=== PATIENT | male | born 1970 | race Caucasian/White ===

== ENCOUNTER 2016-10-07 04:44 | Inpatient (IN) ==
[2016-10-07] MEDS ORDERED: DILAUDID IV ONE ×4 (04:56→05:21)
[2016-10-07] MEDS ORDERED: ZOFRAN IV ONE (04:56)
[2016-10-07] MEDS ORDERED: DILAUDID ONE ×2 (05:02→05:13)
--- NOTE | 2016-10-07 05:08 | PROVIDER DOCUMENTATION ---
HPI-Abdominal Pain/GI Problem - General Chief Complaint: Nausea/Vomiting Stated Complaint: ABD PAIN, VOMITING Time Seen by Provider: 10/07/16 04:56 Source: patient, family (spouse) Allergies/Adverse Reactions: Patient Allergies Allergy/AdvReac Type Severity Reaction Status Date / Time No Known Allergies Allergy Verified 10/07/16 05:49 Home Medications: Home Medication List Medication Instructions Recorded Confirmed Last Taken Type NK [No Home Medications] 10/07/16 10/07/16 Unknown History - History of Present Illness-ABD Nature of Presenting Problems: pt states that he was awakened by epigastric pain that radiates straight through to his back over time it became much worse and is now severe and constant. He did vomit [employer] and still feels nauseous. No shoulder or chest pain. It does not hurt to breath. He does not take any medicines, he does not smoke or drink Review of Systems - Adult - REVIEW OF SYSTEMS - ADULT Constitutional: denies: chills, fever Eyes: denies: discharge Ears, Nose, Mouth & Throat: denies: ear pain, sinus problem, throat pain Cardiovascular: denies: chest pain Respiratory: denies: cough, pleurisy, shortness of breath Gastrointestinal: reports: see HPI. denies: constipation, diarrhea Genitourinary: denies: flank pain Musculoskeletal: reports: back pain (mid back pain) Integumentary: denies: rash Neurological: denies: headache/migraines, numbness, paresthesia Psychiatric: reports: no symptoms reported Endocrine: reports: no symptoms reported Hematologic/Lymphatic: reports: no symptoms reported Allergic/Immunologic: reports: no symptoms reported All Other Systems: Reviewed and Negative Past History - Adult - PAST MEDICAL HISTORY-ADULT Review of Records: reports: Old Records Reviewed, Nursing Assessment Review, Medications Reviewed, Social history reviewed & non-contributory. Cardiovascular: reports: HTN - PRIOR SURGERIES/PROCEDURES Surgical/Procedure History: reports: other (bilateral knee) - IMMUNIZATION STATUS Childhood Immunizations: See Nurse Assessment Flu Vaccine: See Nurse Assessment - SOCIAL HISTORY Smoking: non-smoker Substance Use: denies Living Situation: family Physical Exam-General - PHYSICAL EXAM-ADULT Initial Vital Signs Reviewed: Yes - CONSTITUTIONAL General Appearance: severe distress (from pain) - EYES Eyes: pink conjunctivae. negative: scleral icterus - HEAD, EARS, NOSE, MOUTH & THROAT HENMT: normocephalic/atraumatic - NECK Neck: non-tender, full range of motion, supple, normal inspection - RESPIRATORY Respiratory: chest non-tender, lungs clear, normal breath sounds, no pleuratic chest pain, no respiratory distress, no accessory muscle use - CARDIOVASCULAR Cardiovascular: regular rate, rhythm, no edema, no murmur - GASTROINTESTINAL (ABDOMEN) Abdominal Exam: normal bowel sounds, soft, no organomegaly, no pulsatile mass, guarding, tenderness (severe epigastric). negative: non tender, hernia, mass, hepatomegaly, spleenomegaly, McBurney's point tenderness, Coto's sign - MUSCULOSKELETAL Back Exam: normal inspection, no CVA tenderness, no vertebral tenderness Extremity: no pedal edema, no calf tenderness - SKIN Integumentary: other (ashen iglesias with diaphoresis) - NEUROLOGIC Neurologic: grossly normal, no motor/sensory deficits - PSYCHIATRIC Psych/Mental Status: normal thought content, normal thought process, oriented x 3, other (distressed by pain) Progress - PLAN OF CARE/RESULTS Progress/Plan/Lab Results: Vital Signs - 8 hr 10/07/16 04:50 Temperature 97.9 F Pulse Rate 54 L Respiratory Rate 20 Blood Pressure 156/80 O2 Sat by Pulse Oximetry 100 Orders Category Date Time Status CT ABD/PELVIS W/ IV CONT ONLY [CT] Stat Exams 10/07/16 04:59 Ordered CBC WITH ELECTRONIC DIFF [HEME] Stat Lab 10/07/16 05:01 Ordered CMP [COMPREHENSIVE METABOLIC PANEL] [CHEM] Stat Lab 10/07/16 05:01 Ordered LIPASE [CHEM] Stat Lab 10/07/16 05:01 Ordered TROPONIN T Stat Lab 10/07/16 05:01 Ordered Hydromorphone [Dilaudid] Med 10/07/16 04:56 Discontinued 1 mg IV NOW ONE Hydromorphone [Dilaudid] Med 10/07/16 05:00 Discontinued 2 mg IV NOW ONE Ondansetron [Zofran] Med 10/07/16 04:56 Discontinued 4 mg IV NOW ONE EKG [EKG] Stat Ther 10/07/16 04:57 Ordered Result Diagrams: 10/07/16 05:00 10/07/16 05:00 - REASSESSMENT Reassessment #1 Time Reassessed: 05:41 (finally after dilaudid 6mg, toradol 30mg, ofirmev 1000mg , and ativan 2mg IV pt can now rest and tolerate the pain!) Status: improving - EKG 1 Time of EKG reading by physician:: 05:08 EKG Interpretation (*Must complete 3 of following elements*): Abnormal Rate: 52 Rhythm: sinus manfred [place]: normal QRS: normal NE Interval: shortened ST Wave: normal Prior EKG Comparison: unchanged from prior - CT/MRI 1 CT Study: Abdomen Impression: Abnormal (several gallstones, CBD at 7mm) Departure - Departure Date of Disposition Decision: 10/07/16 Time of Disposition Decision: 05:55 DIAGNOSIS: Cholecystitis Disposition: HOME 01 Certified Medical Emergency: Emergent Condition: Fair Referrals and Follow-Ups: None,PCP [Primary Care Provider] - Discharge Education: Smoking, You Can Quit, [id number], Smoking Cessation, Tips for Success - Critical Care Note This patient required my direct & personal management of CC.: No Attestation - Physician/ ALTAGRACIA Attestation Patient care was provided by Advanced Practice Provider:: No The physician spent face to face time with patient:: Yes Advanced Practice Provider documentation review:: Supervising physician onsite and consulted in the evaluation and care of this patient. The physician did have a face to face encounter with the patient.
[2016-10-07] MEDS ORDERED: OFIRMEV 1000 MG/ISOTONIC SOLN 1,000 MG/100 ML BOTTLE IV ONE (05:21)
[2016-10-07] MEDS ORDERED: TORADOL IV ONE (05:21)
[2016-10-07] MEDS ORDERED: ATIVAN IV ONE ×2 (05:21→05:30)
[2016-10-07 05:23] LABS: MANUAL DIFF NEEDED? NO
[2016-10-07 05:24] LABS: BASO% 0.3 % (0.0-0.8); EOS# 0.72 X1000 (0.0-0.7); EOS% 3.9 % (0.0-10.0); HEMATOCRIT 46.4 % (42.0-52.0); HEMOGLOBIN 15.4 g/dL (14.0-18.0); IMM GRAN# 0.08 X1000 (0.0-0.04); IMM GRAN% 0.4 % (0.0-0.5); LYMPH# 2.47 X1000 (1.2-3.4); LYMPH% 13.4 % (20.5-51.1); MCH 30.7 PG (27-31); MCHC 33.2 g/dL (33-37); MCV 92.4 FL (81-99); MONO# 1.29 X1000 (0.11-0.59); MPV 10.1 FL (7.4-10.4); PLT 352 X1000 (130-400); RBC 5.02 XMIL (4.7-6.1)
[2016-10-07 05:43] LABS: AGAP 11; ALBUMIN 4.4 g/dL (3.5-5.0); ALKALINE PHOSPHATASE 91 U/L (32-122); BUN 12 mg/dL (8-22); CALCIUM 9.2 mg/dL (8.8-10.2); CHLORIDE 100 mmol/L (98-107); COSMO 284; GOT 47 U/L (10-34); GPT 49 U/L (10-44); LIPASE 47 U/L (13-60); SODIUM 141 mmol/L (136-145); TCO2 30 mmol/L (25-35); TOTAL BILIRUBIN 0.19 mg/dL (0.20-1.00); TOTAL PROTEIN 7.7 g/dL (6.3-8.3)
--- NOTE | 2016-10-07 05:44 | EKG Report ---
Test Performed on : 10/07/2016 04:50:20 AM Test Reason : CP Blood Pressure : / mmHG Vent. Rate : 052 BPM Atrial Rate : 052 BPM P-R Int : 098 ms QRS Dur : 086 ms QT Int : 422 ms P-R-T Axes : 019 053 063 degrees QTc Int : 392 ms Sinus bradycardia. with short TX Otherwise normal ECG When compared with ECG of 08-JUL-2015 14:16, No significant change was found Unconfirmed Result
[2016-10-07] MEDS ORDERED: ZOSYN 3.375 GM in NS 50 ML IV ONE (05:53)
[2016-10-07] MEDS ORDERED: NS 1,000 ML IV ONE (05:53)
--- NOTE | 2016-10-07 07:31 | Diag Imaging Result Doc PS360 ---
EXAM: CT ABD/PELVIS W/ IV CONT ONLY HISTORY: epigastric/mid back pain TECHNIQUE: CT of the abdomen and pelvis with intravenous contrast with reduced dose (clarity.) COMMENT: The visualized portion of the chest is unremarkable. There are numerous calcified gallstones in the gallbladder. The gallbladder slightly distended. Many of the stones exceed a centimeter in diameter. The spleen adrenal glands and liver are unremarkable. The pancreas is within normal limits. The common bile duct is slightly distended at over 9 mm. There are no definite intraductal stones. The kidneys are without evidence of hydronephrosis or mass. There is no evidence of bowel obstruction. There are subcentimeter periaortic nodes on the left. Pelvis: There is no evidence of appendicitis. There is a fairly large amount of stool in the rectosigmoid colon. There is no evidence of free fluid. There is no evidence of significant adenopathy. There is degenerative disc disease with possible disc herniation at L5-S1. IMPRESSION: Cholelithiasis. Mild constipation. Dilatation of the common bile duct of uncertain etiology. Electronically signed by Heath Pettit 10/07/2016 7:29 AM
[2016-10-07] MEDS ORDERED: ZOFRAN IV PRN (10:46)
[2016-10-07] MEDS: ZOSYN 3.375 GM in NS 50 ML IV SCH ×2 (12:27→19:26)
[2016-10-07] MEDS: NICODERM PATCH TD SCH (12:27)
[2016-10-07] MEDS: LR 1,000 ML IV SCH ×2 (12:28→22:15)
[2016-10-07] MEDS: DILAUDID IV PRN ×2 (12:28→22:15)
[2016-10-07] MEDS ORDERED: FENTANYL ONE (15:45)
[2016-10-07] MEDS ORDERED: DIPRIVAN 1% ONE (15:45)
[2016-10-07] MEDS ORDERED: XYLOCAINE-MPF 2% ONE (15:47)
[2016-10-07] MEDS ORDERED: XYLOCAINE 1%/EPI 1:100,000 ONE (16:27)
[2016-10-07] MEDS ORDERED: MARCAINE 0.25% PF ONE (16:27)
[2016-10-07] MEDS ORDERED: SODIUM CHLORIDE 0.9% ONE (16:28)
[2016-10-07] MEDS ORDERED: LR 1,000 ML ONE (16:28)
[2016-10-07] MEDS ORDERED: DECADRON ONE (16:54)
[2016-10-07] MEDS ORDERED: ZOFRAN ONE (16:54)
[2016-10-07] MEDS ORDERED: TORADOL ONE (16:54)
[2016-10-07] MEDS ORDERED: OFIRMEV 1000 MG/ISOTONIC SOLN 1,000 MG/100 ML BOTTLE ONE (16:57)
[2016-10-07] MEDS ORDERED: ROBINUL ONE ×2 (17:03→17:27)
--- NOTE | 2016-10-07 17:19 | HISTORY AND PHYSICAL ---
DATE OF ADMISSION: 10/07/2016 HISTORY OF PRESENT ILLNESS: This is a 46-year-old male who presents to the emergency department with severe right upper quadrant abdominal pain. He says over the last year he has had some colicky epigastric and right upper quadrant pain that has been intermittent and has been self- limited. This was a similar episode but became much more severe and persisted with nausea, vomiting, and some subjective fevers. CT scan shows large gallstones throughout his gallbladder. He has leukocytosis. PAST MEDICAL HISTORY: Negative. PAST SURGICAL HISTORY: He has had a finger amputation and knee operation. SOCIAL HISTORY: He smokes about a pack a day. Occasional alcohol. Works in construction. FAMILY HISTORY: He does have some cancer in his family, breast in his sister. REVIEW OF SYSTEMS: Ten point negative except for what is mentioned in HPI. PHYSICAL EXAMINATION: Vital signs: Temperature is 99.0 degrees, pulse 76, blood pressure 113/75, oxygen saturation 96% on room air. This is a 181 pounds, 6 feet tall white male. General: He is alert, in no acute distress. HEENT: No scleral icterus or cervical masses. Cardiovascular: Normal rate. Regular rhythm. Pulmonary: No increased work of breathing. Abdomen: Soft. He is tender in the right upper quadrant but nondistended. There is no peritonitis. Integument: Warm and dry without jaundice. 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 Lymphatic: There is no cervical or axillary lymphadenopathy. Musculoskeletal: Normal range of motion and strength throughout. Peripheral vascular: Well perfused with no lower extremity edema. Psychiatric: Appropriate affect. Neurologic: No gross motor deficits. LABS: White count 18, hematocrit 46. Creatinine is 1.1, bilirubin 0.19, AST 47, ALT 49, alkaline phosphatase 91, lipase 47, albumin is 4.4. CT scan shows cholelithiasis with some dilation of the common bile duct of unclear etiology. No evidence of cholecystitis. ASSESSMENT AND PLAN: This is a 46-year-old white male with symptomatic cholelithiasis that has progressed to cholecystitis. Long discussion with the patient regarding risks, benefits, and alternatives. Risks including bleeding, infection, bile leak, injury to surrounding structures, for example the common bile duct, and the possible outcomes of those and the possibly that we leave a drain. We did talk about benefits and alternatives. He consents to the procedure. He is NPO. I have given him Zosyn for possible cholecystitis. LFTs with mild elevation of transaminases. As such, we will do a cholangiogram if technically feasible and will follow him along while he is inpatient. cc: Rj Ponce MD
[2016-10-07] MEDS ORDERED: NEOSTIGMINE ONE (17:27)
[2016-10-07] MEDS ORDERED: GLUCAGON ONE (17:28)
--- NOTE | 2016-10-07 17:57 | Diag Imaging Result Doc PS360 ---
EXAM: OPERATIVE CHOLANGIOGRAM HISTORY: GALLBLADDER DISEASE TECHNIQUE: Intraoperative cholangiogram two views COMMENT: There is a filling defect and obstruction of the distal common bile duct which is likely due to a stone. IMPRESSION: Obstruction of the distal common bile duct due to impacted stone. Electronically signed by Heath Pettit 10/07/2016 5:55 PM
[2016-10-07] MEDS: MORPHINE ONE ×3 (18:31→18:46)
[2016-10-07] MEDS ORDERED: SODIUM CHLORIDE 0.9% 10 ML ONE (22:18)
[2016-10-07] MEDS ORDERED: PROTONIX ONE (22:19)
[2016-10-07] MEDS: PROTONIX IV SCH (22:20)
[2016-10-07] MEDS: SODIUM CHLORIDE 0.9% INJ SCH (22:20)
[2016-10-07] MEDS: PERIDEX MT SCH (23:21)
[2016-10-07] MEDS: NORCO-7.5 PO PRN (23:49)
[2016-10-08] MEDS: ZOSYN 3.375 GM in NS 50 ML IV SCH ×4 (01:45→20:54)
[2016-10-08] MEDS: DILAUDID IV PRN ×6 (05:09→22:32)
[2016-10-08] MEDS: LR 1,000 ML IV SCH ×5 (07:34→23:19)
[2016-10-08] MEDS: NICODERM PATCH TD SCH (08:09)
[2016-10-08] MEDS: PERIDEX MT SCH ×2 (08:10→20:54)
[2016-10-08 08:37] LABS: MANUAL DIFF NEEDED? NO
[2016-10-08 08:39] LABS: BASO% 0.1 % (0.0-0.8); EOS# 0.01 X1000 (0.0-0.7); EOS% 0.1 % (0.0-10.0); HEMATOCRIT 40.5 % (42.0-52.0); HEMOGLOBIN 13.5 g/dL (14.0-18.0); IMM GRAN# 0.02 X1000 (0.0-0.04); IMM GRAN% 0.2 % (0.0-0.5); LYMPH# 1.26 X1000 (1.2-3.4); LYMPH% 9.6 % (20.5-51.1); MCH 30.8 PG (27-31); MCHC 33.3 g/dL (33-37); MCV 92.5 FL (81-99); MONO# 0.86 X1000 (0.11-0.59); MONO% 6.5 % (1.7-9.3); MPV 9.8 FL (7.4-10.4); NEUT% 83.5 % (42.2-75.2); PLT 264 X1000 (130-400); RBC 4.38 XMIL (4.7-6.1)
[2016-10-08 08:57] LABS: AGAP 9; ALBUMIN 3.6 g/dL (3.5-5.0); ALKALINE PHOSPHATASE 155 U/L (32-122); BUN 9 mg/dL (8-22); CALCIUM 8.1 mg/dL (8.8-10.2); CHLORIDE 102 mmol/L (98-107); COSMO 277; GOT 96 U/L (10-34); GPT 79 U/L (10-44); LIPASE 19 U/L (13-60); POTASSIUM 4.2 mmol/L (3.5-5.1); SODIUM 139 mmol/L (136-145); TCO2 28 mmol/L (25-35); TOTAL BILIRUBIN 0.48 mg/dL (0.20-1.00); TOTAL PROTEIN 6.1 g/dL (6.3-8.3)
--- NOTE | 2016-10-08 11:00 | OPERATIVE NOTE ---
PROCEDURE DATE: 10/07/2016 PREOPERATIVE DIAGNOSES: 1. Cholelithiasis. 2. Cholecystitis. POSTOPERATIVE DIAGNOSIS: Choledocholithiasis with cholecystitis. ANESTHESIA: General. ESTIMATED BLOOD LOSS: 20 mL. SPECIMENS: Gallbladder. PROCEDURE PERFORMED: Laparoscopic cholecystectomy with intraoperative cholangiogram. INDICATIONS: A 46-year-old white male who presents with 1 year history of colicky intermittent right upper quadrant abdominal pain. He had a more acute and severe episode that brought him to the emergency department. CT scan showed gallstones. LFTs were mildly abnormal with elevation transaminases. OPERATIVE FINDINGS: 1. There is a densely inflamed, erythematous and edematous gallbladder with omental and duodenal adhesions. Several large stones within the lumen. 2. Interpretation intraoperative cholangiogram. There is rapid flow contrast into a nondilated moderate length cystic duct into a dilated common bile duct with an abrupt cut off and apparent distal common bile duct stone impacted. There was reflux into the common hepatic which again was dilated and into the bilateral second and third degree biliary radicals, which were dilated. We attempted to give glucagon, but there was ultimately no passage of contrast into the duodenum consistent with a retained distal common bile duct stone. Operative note, risks, benefits, alternatives discussed with the patient. He consented to the procedure. He was seen preoperatively and surgery to be performed was confirmed. DESCRIPTION OF PROCEDURE IN DETAIL: He was taken to the operating room, placed supine position. General anesthesia induced without complication. All bony prominence were padded. Placed in neutral position. Scheduled antibiotics were confirmed, hair was removed with clippers. His abdomen was prepped with chlorhexidine solution and draped in usual fashion. After time-out was performed, periumbilical block was made with local anesthetic. A curvilinear infraumbilical incision was made and carried down to the level of the fascia. The fascia was elevated with a Dianna clamp, an incision along the midline was made, and abdomen was entered in an open controlled fashion. A 12 mm Franny trocar was placed. The abdomen was insufflated 15 mmHg. He tolerated this well. He was then placed in reverse Trendelenburg, left side down. We placed 3 trocars; one at the epigastrium, one in the midclavicular line off the costal margin, and one more laterally after infiltration of the peritoneum with local anesthetic. He tolerated this well. We then used a locking grasper, grasped the gallbladder, retracted it cephalad. It is quite distended. As such, we used the suction decompression needle to decompress it. It would partially decompress, but it was impacted with stones. As such, we retracted the gallbladder cephalad and, using a combination of blunt and electrocautery dissection, we took down all the adhesions up to the gallbladder. This was quite hemorrhagic, took quite some time, but we were able do this successfully and safely. Retracting down patient's right on the infundibulum, we identified the infundibulocystic junction and then dissected the lower third of the gallbladder off exposing this triangle with the liver visualized through this. There was a small cystic artery that coursed through this that we doubly clipped and divided. After confirming the anatomy and a critical view again, we were able to dissect a normal caliber cystic duct. We placed a clip on the gallbladder side of the cystic duct, made a ductotomy, performed cholangiogram with above findings. After we confirmed that there was a stone in the distal common bile duct, we did administer some glucagon and, despite flushing again, the stone would not dislodge. As such, we triply clipped the cystic duct and divided it and removed the gallbladder from the gallbladder fossa with electrocautery. We placed the gallbladder in EndoCatch bag with care not to rupture it and this was done successfully. We then irrigated the abdomen until clear and again inspected our cystic duct stump. There was good closure here; there is no bleeding. We placed a Jewel drain in the gallbladder fossa given the distal obstruction and inflamed nature, brought this out through a lateral port site and secured with a nylon suture. We then removed the other trocars under direct visualization. They were hemostatic. We desufflated the abdomen, brought the gallbladder out through the umbilical incision. We closed the fascia with interrupted 0 Vicryl sutures. Skin was closed with 4-0 subcuticular sutures and Dermabond was applied for dressing. He tolerated the procedure well. Counts were correct x2. I spoke with the family. We transferred him to recovery and to the floor tonight. We will continue his antibiotics for cholangitis prophylaxis, and I have consulted Dr. Teixeira of GI medicine for ERCP and stone extraction. I discussed this finding with the family and they understand that he will need another procedure. We will continue to follow him while inpatient. cc: Rj Ponce MD [facility]
[2016-10-08] MEDS ORDERED: DIPRIVAN 1% ONE ×2 (12:58→13:06)
[2016-10-08] MEDS ORDERED: VERSED ONE (12:59)
--- NOTE | 2016-10-08 13:50 | PROGRESS NOTE ---
DATE: 10/08/2016 SUBJECTIVE: Still having some pain but otherwise was appropriate in the postop setting. No fevers overnight. Pulse 52, blood pressure 125/80, oxygen saturation 97% on room air.General: He is alert. I do not see any jaundice or scleral icterus. Abdomen: Is soft, appropriately tender. SRUTHI drain serosanguineous. LABS: White count 13, hematocrit 40, creatinine is 1.0, bilirubin is normal at 0.48. AST and ALT are up slightly at 96 and 79. Alkaline phosphatase 155. Lipase normal at 19. ASSESSMENT/PLAN: This is a 46-year-old male admitted with cholecystitis and found to have choledocholithiasis. I have talked to Dr. Teixeira. He and Dr. Ngo are planning a ERCP today. We will continue antibiotics for cholangitis prophylaxis and we will advance his diet as he tolerates afterwards. Keep the drain for now given his distal obstruction and will continue to follow him along. cc: Rj Ponce MD
--- NOTE | 2016-10-08 14:04 | Diag Imaging Result Doc PS360 ---
ERCP-BILIARY AND PANCREATIC - 10/08/2016 INDICATION: CBD stone TECHNIQUE: The exam was performed by the patient's endoscopist. Three images were submitted. COMPARISON: CT from 10/07/2016 FINDINGS: There is dilation of the common bile duct presumably from a stone impacted distally. This was successfully crossed with a wire. A common bile duct stent was left in place. IMPRESSION: No complication. Electronically signed by Moose Ontiveros 10/08/2016 2:02 PM
[2016-10-08] MEDS: NORCO-7.5 PO PRN ×2 (14:16→20:55)
[2016-10-08] MEDS: PROTONIX IV SCH (20:54)
[2016-10-08] MEDS: SODIUM CHLORIDE 0.9% INJ SCH (20:54)
[2016-10-09] MEDS: DILAUDID IV PRN ×11 (00:22→23:03)
[2016-10-09] MEDS: NORCO-7.5 PO PRN ×5 (03:06→21:43)
[2016-10-09] MEDS: ZOSYN 3.375 GM in NS 50 ML IV SCH ×4 (04:00→20:40)
[2016-10-09] MEDS: LR 1,000 ML IV SCH ×6 (07:19→23:03)
[2016-10-09] MEDS: NICODERM PATCH TD SCH (08:57)
[2016-10-09] MEDS: PERIDEX MT SCH ×2 (08:59→20:41)
[2016-10-09 09:36] LABS: AGAP 10; ALBUMIN 3.4 g/dL (3.5-5.0); ALKALINE PHOSPHATASE 117 U/L (32-122); BUN 6 mg/dL (8-22); CALCIUM 8.4 mg/dL (8.8-10.2); CHLORIDE 103 mmol/L (98-107); COSMO 277; GOT 52 U/L (10-34); GPT 60 U/L (10-44); POTASSIUM 3.6 mmol/L (3.5-5.1); SODIUM 140 mmol/L (136-145); TCO2 27 mmol/L (25-35); TOTAL BILIRUBIN 0.48 mg/dL (0.20-1.00); TOTAL PROTEIN 5.9 g/dL (6.3-8.3)
--- NOTE | 2016-10-09 15:08 | PROGRESS NOTE ---
DATE: 10/09/2016 SUBJECTIVE: Patient currently resting in bed. He complains of generalized abdominal pain. He was diagnosed with post ERCP pancreatitis. This morning his lipase had jumped to 1947. He was started on IV fluids. He was made NPO this AM. He has been on IV pain medications. The patient denies any nausea or vomiting. He has not had any bowel movement for last few days. He denies any fevers, rigors, chills. OBJECTIVE: Temperature 98.5 degrees, pulse rate of 78, respiratory rate of 16, blood pressure 120/74, saturating 92% on room air. Body weight of 181 pounds 3.2 ounces.General Appearance: Moderately built, lying in bed, in mild distress from abdominal pain. HEENT: No pallor. No icterus. Neck: Supple. Abdomen: Sore all around. Bowel sounds are hypoactive. No guarding. He has a drain in the right upper quadrant in the surgical site right upper quadrant. Extremities: No cyanosis, clubbing, edema. Neurologic: He is alert, awake, and oriented. LAB: Sodium 140, potassium 3.6, chloride 103, bicarb of 27, BUN of 6, creatinine 0.8, glucose of 105, calcium is 8.4, total bilirubin is 0.4. AST 52, ALT 60, alkaline phosphatase is 117, total protein 5.9, albumin 3.4, lipase 1947. The total protein 5.9, albumin of 3.4. IMPRESSION AND PLAN: 1. Cholecystitis status post laparoscopic cholecystectomy by Dr. Aamir Ponce. He is currently healing. 2. Post ERCP pancreatitis. We start him on Ringer's lactate. We will increase the amount of fluid to 250 mL/h. Given IV PPIs, IV pain control. IV antiemetics. recheck Lipase in AM. 3. He is NPO for now. We will start him on liquid diet tomorrow likely if his pain is better controlled. 4. Continue antibiotics for now. 5. We will keep him on GI prophylaxis. 6. The patient will need to have a repeat ERCP with stent removal in 4-6 weeks after discharge. In this regard he will follow with Dr. Ngo in 4-6 weeks of discharge. 7. The above plan of care was discussed with the patient and all questions were answered. Thank you for allowing us to participate in the care of this patient. cc: MD Rj Joseph MD [facility]
--- NOTE | 2016-10-09 17:20 | PROGRESS NOTE ---
DATE: 10/09/2016 SUBJECTIVE: Having increasing pain, epigastric, radiating to his back this morning. No nausea, vomiting. OBJECTIVE: Vital signs: No fevers. No tachycardia. Blood pressure 125/84, O2 saturation 97% on room air. General: He is alert, in no acute distress, but appears uncomfortable. Abdomen: Soft, appropriately tender. Incision is clean, dry, intact. LABORATORY: Reviewed. Bilirubin 0.48, AST, ALT are down to 52 and 60, alkaline phosphatase 117, lipase elevated at 1947. ASSESSMENT/PLAN: This is a 46-year-old male, status post laparoscopic cholecystectomy, found to have a common bile duct obstruction related to a stone. He underwent ERCP yesterday, which apparently did not demonstrate the stone, but a stent was left. He appears to have developed some pancreatitis today. We will make him NPO, hydrate him and follow his lipase and his exams, and as this resolves, I think we can allow him to go home. We will continue his drain for now. cc: Rj Ponce MD
[2016-10-09] MEDS: LOVENOX SUBQ SCH (17:22)
[2016-10-09] MEDS: PROTONIX IV SCH (20:40)
[2016-10-09] MEDS: SODIUM CHLORIDE 0.9% INJ SCH (20:41)
[2016-10-10] MEDS: DILAUDID IV PRN ×17 (00:05→23:00)
[2016-10-10] MEDS: LR 1,000 ML IV SCH ×6 (01:23→21:42)
[2016-10-10] MEDS: NORCO-7.5 PO PRN ×5 (02:28→22:59)
[2016-10-10] MEDS: ZOSYN 3.375 GM in NS 50 ML IV SCH ×2 (02:34→08:25)
[2016-10-10] MEDS: SODIUM CHLORIDE 0.9% INJ SCH ×2 (04:19→21:43)
[2016-10-10 07:41] LABS: MANUAL DIFF NEEDED? NO
[2016-10-10 07:44] LABS: BASO% 0.2 % (0.0-0.8); EOS# 0.42 X1000 (0.0-0.7); EOS% 3.5 % (0.0-10.0); HEMATOCRIT 43.1 % (42.0-52.0); HEMOGLOBIN 14.3 g/dL (14.0-18.0); IMM GRAN# 0.03 X1000 (0.0-0.04); IMM GRAN% 0.3 % (0.0-0.5); LYMPH# 2.24 X1000 (1.2-3.4); LYMPH% 18.8 % (20.5-51.1); MCH 31.1 PG (27-31); MCHC 33.2 g/dL (33-37); MCV 93.7 FL (81-99); MONO# 0.92 X1000 (0.11-0.59); MONO% 7.7 % (1.7-9.3); MPV 9.7 FL (7.4-10.4); NEUT% 69.5 % (42.2-75.2); PLT 260 X1000 (130-400)
[2016-10-10 08:06] LABS: AGAP 11; ALBUMIN 3.9 g/dL (3.5-5.0); ALKALINE PHOSPHATASE 114 U/L (32-122); BUN 6 mg/dL (8-22); CHLORIDE 94 mmol/L (98-107); COSMO 268; GOT 52 U/L (10-34); GPT 58 U/L (10-44); POTASSIUM 4.2 mmol/L (3.5-5.1); SODIUM 136 mmol/L (136-145); TCO2 31 mmol/L (25-35); TOTAL BILIRUBIN 0.92 mg/dL (0.20-1.00); TOTAL PROTEIN 6.9 g/dL (6.3-8.3)
[2016-10-10] MEDS: PERIDEX MT SCH ×2 (08:25→21:43)
[2016-10-10] MEDS: NICODERM PATCH TD SCH (08:25)
[2016-10-10 08:30] LABS: LIPASE 484 U/L (13-60)
--- NOTE | 2016-10-10 12:27 | PROGRESS NOTE ---
DATE: 10/10/2016 SUBJECTIVE: The patient is currently resting in bed. His abdominal pain is improved. He denies any nausea or vomiting. He still has some ileus and has not passed much flatus. He is on ice chips per the surgical team. No fevers reported. OBJECTIVE: Vital signs: Temperature 98.2, pulse rate of 78 respiratory 14 blood pressure 130/85 saturating 90% on room air. General Appearance: Moderately built, lying in bed , in no acute distress. HEENT: No pallor. No icterus. Neck: Supple. Abdomen: Right upper quadrant drain noted. Mild discomfort in periumbilical region. Bowel sounds are hypoactive. Appropriately tender from the recent surgery. Extremities: No cyanosis, clubbing, edema. Neurologic: He is alert, awake, oriented. LAB: Hemoglobin and hematocrit are 14.3 and 43.1, white count 11.9, platelet count of 260,000. Sodium 136, potassium 4.2, chloride 94, bicarb 30, anion gap 11, BUN of 6, creatinine 0.8, glucose of 79, calcium 9, total bilirubin is 0.92, AST 52, ALT 58, alkaline phosphatase 114, total protein 6.9, albumin of 3.9, lipase of 484 which is down. IMPRESSION AND PLAN: 1. Post endoscopic retrograde cholangiopancreatography. Pancreatitis is improving. We will continue Ringer's lactate 250 mL/h. If okay with the surgical team we can start him on a liquid diet and advance as tolerated to low-fat diet for 6 weeks. 2. Cholecystitis status post laparoscopic cholecystectomy Dr. Ponce and right upper quadrant drain placement. Being managed Dr. Ponce. 3. We will continue gastrointestinal prophylaxis with PPIs 4. Pain control with IV pain medication. 5. He is on antibiotics which can be discontinued on discharge if okay with the surgical team. 6. Patient will need a repeat ERCP in 4-6 weeks of discharge by Dr. Ngo to remove this common bile duct stent. The patient was recommended to follow up with us in 4-6 weeks of discharge. The above plan was discussed with the patient. cc: MD Rj Joseph MD [facility]
--- NOTE | 2016-10-10 15:33 | PROGRESS NOTE ---
DATE: 10/10/2016 SUBJECTIVE: He feels better. Pain that is going to his back has improved, not quite resolved, but he is needing pain medicine less frequently. OBJECTIVE: No fevers. Pulse has been in the 60s. Blood pressure is 132/85. No jaundice. Abdomen is soft, appropriately tender. SRUTHI drain serosanguineous. Incision is clean, dry, and intact. LABORATORY DATA: Labs reviewed. White count is down to 11. Hematocrit is 43. Bilirubin is normal at 0.92. Lipase down to 484. ASSESSMENT AND PLAN: A 46-year-old male with choledocholithiasis status post endoscopic retrograde cholangiopancreatography complicated by pancreatitis. This seems to be improving. We will give him clear liquids today and advance his diet as he tolerates over the next 24 hours. Plan to let him go home after this point. We will continue his drain for now. Just given the multiple issues he has got going, I am planning on removing it likely before he goes home. cc: Rj Ponce MD
[2016-10-10] MEDS: LOVENOX SUBQ SCH ×2 (15:34→17:38)
[2016-10-10] MEDS: PROTONIX IV SCH (21:43)
[2016-10-11] MEDS: DILAUDID IV PRN ×5 (01:42→11:41)
[2016-10-11] MEDS: LR 1,000 ML IV SCH ×4 (02:01→10:40)
[2016-10-11] MEDS: NORCO-7.5 PO PRN ×2 (07:32→11:42)
[2016-10-11] MEDS: NICODERM PATCH TD SCH (09:07)
[2016-10-11] MEDS: PERIDEX MT SCH (09:08)
[2016-10-11 11:54] VITALS: BP 128/75
--- NOTE | 2016-10-11 14:12 | PROGRESS NOTE ---
DATE: 10/11/2016 SUBJECTIVE: He feels better. He is tolerating a diet. Pain is resolved. OBJECTIVE: No fevers. Pulse 68, blood pressure 149/94, oxygen saturation 100 percent.General: He is alert, in no acute distress. There is no jaundice. SRUTHI drain serosanguineous. LABS: Nothing new today but lipase is down trending yesterday. ASSESSMENT AND PLAN: A 46-year-old male, status post laparoscopic cholecystectomy. Found to have choledocholithiasis status post ERCP that did develop some pancreatitis. He is doing well. cc: Rj Ponce MD
--- NOTE | 2016-10-11 14:13 | DISCHARGE SUMMARY ---
ADMISSION DATE: 10/07/2016 DISCHARGE DATE: 10/11/2016 HISTORY OF PRESENT ILLNESS: 46-year-old male who presented with severe cholecystitis. Intraoperative cholangiogram showed a gallstone. For other details please see dictated operative note. Postoperative day 1 he was taken to the operating room, by Dr. Ngo for an ERCP where a stent was placed. There was no obvious retained stone but the stone was left. LFTs normalized. He developed some pancreatitis which now trended and resolved with bowel rest and hydration. On the day of discharge he was doing well. He was tolerating a diet with no further pancreatitis type pain and was taken oral medications alone. Was felt safe for discharge home. He is given detailed postoperative instructions, what to watch out for, fevers, nausea, vomiting, worsening pain, jaundice and he understands and will see me back in the next 1-2 weeks for followup appointment. He will also need to see Dr. Ngo in 6 weeks for stent removal and repeat ERCP. We discussed all this in detail with the patient. He understands. He will avoid heavy lifting and continue with a low-fat GI soft diet going forward for the next couple of weeks. He can continue taking home medications. -9 cc: Rj Ponce MD
--- NOTE | 2016-11-06 22:13 | OPERATIVE NOTE ---
PROCEDURE DATE: 10/08/2016 PROCEDURE: 1. Endoscopic retrograde cholangiopancreatography. 2. Endoscopic sphincterotomy. 3. Stone removal and stent placement. PREOPERATIVE DIAGNOSIS: Common bile duct stone. POSTOPERATIVE DIAGNOSIS: Common bile duct stone, removed, stented. DETAILS OF OPERATION: After informed consent and adequate intravenous sedation, the scope was introduced through the esophagus, stomach and duodenum. Ampulla is prominent at this point. Cholangiogram was obtained. A generous sphincterotomy was performed and the stone was held with the basket and removed. At this point, a 10-[place] 5 cm stent was deployed. The scope was withdrawn. The patient tolerated the procedure well without any immediate complications. We will bring him back after a few weeks and remove the stent and flush the bile duct was any retained fragments and stone clearance. cc: MD Rj Serrato MD
== END 2016-10-11 12:00 | disposition home or self-care (01) ==
LOC: ED 04:44 → 4N 06:24
PROVIDERS: ADMIT Surgery; ATTEND Surgery